=== PATIENT | male | born 1980 | race Caucasian/White ===

== ENCOUNTER 2018-09-17 19:27 | Emergency (ER) | payer SELFPAY ==
[~2018-09-17] VITALS: Ht 170.2 cm; Wt 108.0 kg
[2018-09-17 19:35] VITALS: Ht 170.2 cm; Wt 108.0 kg
[2018-09-17 20:27] VITALS: BP 136/82
== END 2018-09-17 20:27 | disposition home or self-care (01) ==
LOC: ED 19:27
DX: J40 Bronchitis, not specified as acute or chronic (principal); R03.0 Elevated blood-pressure reading, without diagnosis of hypertension
CPT/HCPCS: J7512